=== PATIENT | female | born 1935 | race Caucasian/White ===

== ENCOUNTER → 2017-08-25 | Day surgery (SDC) | payer OTHER ==
[~2017-08-25] VITALS: Ht 152.4 cm; Wt 57.2 kg
[~2017-08-25] MED LIST: ASPIRIN CHILDRE81 MG PO; ASPIRIN EC81 M1 PO; DOCUSATE SODIU100 MG PO; DYAZIDE 25 MG-31 CAP PO; LISINOPRIL10 MG PO; LIVALO2 M1 PO; MOTRIN 600 MG600 MG PO; MULTIVITAMINS1 EAC9 PO; PERCOCET 325 MG1 TA2 PO; PRINIVIL10 MG PO; RENAL CAPS1 SGL PO; VITAMIN C500 M3 PO; VITAMIN D1000 IU PO; ZESTRIL10 M1 PO
--- NOTE | 2017-08-25 10:29 | Operative Report ---
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 A lid speculum was placed to retract the lids. The case was begun by making 1 partial-thickness corneal relaxing [incision] at 5. A temporal incision with a 2.4 mm keratome. The eye was stabilized with a Woodard ring during this incision. 1 mL of non-preserved lidocaine was introduced into the anterior chamber to provide anesthesia. The anterior chamber was then filled and deepened with viscoelastic. A Malyugin ring was then introduced into the anterior chamber and placed with its forklifts underneath her holding the iris. This was done in order to enlarge the pupil so that the capsulorrhexis could be achieved safely. A curvilinear capsulorrhexis was made using a 30-gauge needle and is a cystotome and capsulorrhexis was finished using a Utrata forceps. A second or paracentesis incision was made temporally with a 1 mm MVR blade. The lens was then hydrodissected with balanced salt solution and found to be rotatable. The lens was emulsified using phacoemulsification and a modified four-quadrant cracking technique. The residual cortical material was removed using automated irrigation and aspiration and as much of the anterior capsular rim was cleaned as well as possible. The posterior capsule was cleaned first with the automated machine on a low setting and then manually with a Casimiro squeegee. The capsular bag was deepened with viscoelastic. The lens a Akreos AO60 22.5 Diopter placed into the bag under direct visualization and rotated so that the haptics were at 12 and 6:00. The Myalugin ring was then disengaged from the iris and removed from the eye using the buckle wire inserter. Viscoelastic was then removed from the eye by flushing it out and then by automated irrigation and aspiration. The eye was pressurized to a normal tone. 1/10 of a cc of vancomycin solution was introduced into the anterior chamber to provide antibiotic prophylaxis. The wounds were sealed by hydrating the stroma adjacent to them and the eye was left at a proper tone after the wounds were checked and found not to be leaking. The lid speculum was removed from the orbit. Antibiotic and steroid drops were placed on the eye and then the eye was shielded. Monitoring equipment was removed from the patient and the patient was removed from the operative suite to the holding area. The patient tolerated the procedure well and will be seen in the office tomorrow.
== END ==
LOC: STS 02:00
DX: H25.89 Other age-related cataract (principal); I10 Essential (primary) hypertension
CPT/HCPCS: J2250; V2632